=== PATIENT | female | born 1985 | race African-American/Black ===

== ENCOUNTER 2020-09-13 05:22 | Inpatient (IN) | payer MEDICARE, MEDICAID, SELFPAY ==
--- NOTE | 2020-09-12 19:00 | PM.IMHP ---
H&P: HPI History of Present Illness Date/Time: 09/12/20 19:00 35 yo F smoker with h/o CT, NG, candidiasis, PRIOR c-sectionx1, GBS, HPV and fibroids who presents for REPEAT C SECTION AND BILATERAL TUBAL STERILIZATION at 39wk 6d. I explained her condition procedure and risks involved including but not limited to bleeding infection injury to bladder bowel baby pelvic vessels DVT pneumonia wound infection UTI hemorrhage the risk of anesthesia and she agrees to proceed Informed consent obtained [facility] tubal consent forms have been signed and advanced Chief Complaint: Repeat with bilateral tubal sterilization Term Review of Systems Review of Systems: All systems reviewed & are unremarkable except as noted in HPI and below Constitutional: Constitutional: Reports no additional constitutional complaints Eyes: Eyes: Reports no additional eye complaints ENT: Reports system reviewed and no additional complaints, except as documented Cardiovascular: Cardiovascular: Reports no additional cardiovascular complaints Respiratory: Respiratory: Reports no additional respiratory complaints Gastrointestinal: Gastrointestinal: Reports no additional gastrointestinal complaints Genitourinary: Genitourinary: Reports no additional female genitourinary complaints Musculoskeletal: Musculoskeletal: Reports no additional musculoskeletal complaints Integumentary/Breasts: Skin/Breast: Reports system reviewed and no additional complaints, except as docu Neurologic: Reports system reviewed and no additional complaints, except as documented Psychiatric: Psychiatric: Reports no additional psychiatric complaints Endocrine: Endocrine: Reports no additional endocrine complaints Hematologic/Lymphatic: Hematologic/Lymphatic: Reports no additional hematologic/lymphatic complaints Allergic/Immunologic: Allergic/Immunologic: Reports no additional allergic/immunologic complaints [facility] Past Medical History Medical History (Updated 09/12/20 @ 19:13 by Pb Longo MD) Candidiasis section wound complication Colitis Condyloma acuminatum Group B Streptococcus carrier, antepartum History of chlamydia History of gonorrhea HPV (human papilloma virus) infection Hyperemesis Uterine leiomyoma during , with baby delivered Vomiting blood Surgical History Surgical History (Updated 09/12/20 @ 19:13 by Pb Longo MD) Delivery by section Family History Family History (Updated 09/12/20 @ 19:08 by Pb Longo MD) Other Asthma Depression Diabetes mellitus Heart disease Hypertension Social History Social History (Updated 09/12/20 @ 19:09 by Pb Longo MD) Smoking packs per day: 1 Smoking cigarettes per day: 20.0 Smoking status: Current every day smoker Tobacco type: cigarettes Second hand tobacco smoke exposure: Yes Alcohol intake: former Substance use type: marijuana Living arrangements: with family Occupation/Education: unemployed Gender identity (if verbalized by the patient): Female Sexual Orientation (if Verbalized by the Patient): Bisexual Spiritual care concerns: No Agree to blood products: Yes Meds Home Medications and Allergies Home Medications Medication Instructions Recorded Confirmed Type calcium carbonate 600 mg calcium 600 mg PO DAILY 07/10/20 07/11/20 History (1,500 mg) tablet escitalopram oxalate 10 mg tablet 10 mg PO DAILY 07/10/20 07/11/20 History metronidazole 500 mg tablet 500 mg PO Q8H 07/10/20 07/11/20 History vits 75-iron 28 mg-folic 1 pkg PO DAILY ea 07/10/20 07/11/20 History acid 800 mcg-omega3 440 mg oral pack progesterone micronized 200 mg 200 mg PO QHS 07/10/20 07/11/20 History capsule pyridoxine (vitamin B6) 25 mg 25 mg PO DAILY 07/10/20 07/11/20 History tablet scopolamine base 1 mg over 3 days 1 patch TRANSDERMAL Q72H 07/10
[2020-09-13] VITALS (54 sets, daily range): BP systolic 90–120; BP diastolic 54–79; PULSE 57–140; RESP 13–18; TEMP 35.8–36.9; O2SAT 73–100; BMI 34.5
--- NOTE | 2020-09-13 06:42 | LDADM ---
This patient, Rogerio Boyd, was admitted to Labor/Delivery/Recovery 120 on 09/13/20 at 05:22. Plans for labor, pain management and were discussed with patient. Patient/family oriented to hospital policies and general routines including ID bracelet, bed and alarms, visiting hours, pain management, procedures, bathroom and other care routines, personal items, smoking policy, room service/diet and guest tray routines, security routines, call light, and visiting hours. Patient/Family are encouraged to report perceived risks to care and to ask questions if they do not understand what they are told or what they should do. See OBIX for further documentation.
[2020-09-13 06:43] LABS: Basophils Absolute Auto 0.1 K/mm3 (0.0-0.1); Basophils Percent Auto 0.4 % (0.2-1.2); Eosinophils Absolute Auto 0.1 K/mm3 (0-0.3); Eosinophils Percent Auto 0.6 % (0-4.4); Hematocrit 33.5 % (37.0-47.0); Immature Granulocyte Percent A 2.2 % (0-0.5); Lymphocytes Absolute Auto 2.95 K/mm3 (0.9-3.2); Lymphocytes Percent Auto 21.9 % (18.3-44.2); Mean Corpuscular HGB Conc 32.8 g/dl (32-36); Mean Corpuscular Volume 94.4 fl (80-100); Mean Platelet Volume 10.6 fl (7.4-10.4); Monocytes Absolute Auto 1.2 K/mm3 (0.1-0.6); Monocytes Percent Auto 8.9 % (2.6-8.5); Neutrophils Absolute Auto 8.9 K/mm3 (1.3-6.7); Nucleated Red Blood Cells Perc 0.1 % (0.0-0.2); Platelet Count Result 254 k/mm3 (150-375); Red Blood Count 3.55 M/mm3 (4.2-5.4); Red Cell Distribution Width 13.2 % (11.5-14.5); White Blood Count 13.5 K/mm3 (4.5-10.0)
--- NOTE | 2020-09-13 06:55 | WPDANESEPPF ---
Anes - Initial Pre Proc Eval Procedure: Operation Date: 09/13/20 07:30 Proposed Procedures p Repeat Low Transverse Section - Pb Longo MD s Laparoscopic Bilateral Salpingectomy For Tubal Sterilization - Pb Longo MD Date/Time: 09/13/20 06:55 Surgeon: Pb Longo MD Pre Op Diagnosis: Repeat , Bilateral tubal ligation Patient Data Age: 35 Gender: F Height: 1.63 m Weight: 91.4 kg Last Vital Signs Pulse 106 H 09/13/20 06:19 BP 120/79 09/13/20 06:19 Allergies Allergy/AdvReac Type Severity Reaction Status Date / Time No Known Allergies Allergy Unverified 07/11/20 11:57 Home Medications Medication Instructions Recorded Confirmed Type calcium carbonate 600 mg calcium 600 mg PO DAILY 07/10/20 07/11/20 History (1,500 mg) tablet escitalopram oxalate 10 mg tablet 10 mg PO DAILY 07/10/20 07/11/20 History metronidazole 500 mg tablet 500 mg PO Q8H 07/10/20 07/11/20 History vits 75-iron 28 mg-folic 1 pkg PO DAILY ea 07/10/20 07/11/20 History acid 800 mcg-omega3 440 mg oral pack progesterone micronized 200 mg 200 mg PO QHS 07/10/20 07/11/20 History capsule pyridoxine (vitamin B6) 25 mg 25 mg PO DAILY 07/10/20 07/11/20 History tablet scopolamine base 1 mg over 3 days 1 patch TRANSDERMAL Q72H 07/10/20 07/11/20 History transdermal patch triamcinolone acetonide 0.1 % 1 applic TOPICAL BID 07/10/20 07/11/20 History topical cream famotidine 20 mg tablet 20 mg PO DAILY #30 tablet 07/11/20 07/11/20 Rx hydrocortisone 1 % topical cream 1 applic RECTAL DAILY #28.4 g 07/11/20 07/11/20 Rx with perineal applicator Laboratory Tests 09/13/20 09/13/20 09/13/20 06:31 06:31 06:31 WBC 13.5 K/mm3 H K/mm3 (4.5-10.0) RBC 3.55 M/mm3 L M/mm3 (4.2-5.4) Hgb 11.0 g/dL L g/dL (12.0-15.0) Hct 33.5 % L % (37.0-47.0) MCV 94.4 fl fl (80-100) MCH 31.0 pg pg (26-34) MCHC 32.8 g/dl g/dl (32-36) RDW 13.2 % % (11.5-14.5) Plt Count 254 k/mm3 k/mm3 (150-375) MPV 10.6 fl H fl (7.4-10.4) Immature Gran % (Auto) 2.2 % H % (0-0.5) Neut % (Auto) 66.0 % % (45.5-73.1) Lymph % (Auto) 21.9 % % (18.3-44.2) [place] % (Auto) 8.9 % H % (2.6-8.5) Eos % (Auto) 0.6 % % (0-4.4) Baso % (Auto) 0.4 % % (0.2-1.2) Lymph # (Auto) 2.95 K/mm3 K/mm3 (0.9-3.2) [place] # (Auto) 1.2 K/mm3 H K/mm3 (0.1-0.6) Eos # (Auto) 0.1 K/mm3 K/mm3 (0-0.3) Baso # (Auto) 0.1 K/mm3 K/mm3 (0.0-0.1) Abs Immat Gran (auto) 0.30 K/mm3 H K/mm3 (0.00-0.031) Absolute Neuts (auto) 8.9 K/mm3 H K/mm3 (1.3-6.7) Absolute Nucleated RBC 0.0 K/mm3 K/mm3 (0.0-0.012) Nucleated RBC % 0.1 % % (0.0-0.2) Urine Opiates Screen Pending Urine Methadone Screen Pending Ur Barbiturates Screen Pending Ur Phencyclidine Scrn Pending Ur Amphetamine Screen Pending U Benzodiazepines Scrn Pending Urine Cocaine Screen Pending U Cannabinoids Screen Pending RPR Pending Patient hx anesthesia problems: none Family hx anesthesia problems: none PMFSH Past Medical History Medical History (Updated 09/12/20 @ 19:13 by Pb Longo MD) Candidiasis section wound complication Colitis Condyloma acuminatum Group B Streptococcus carrier, antepartum History of chlamydia History of gonorrhea HPV (human papilloma virus) infection Hyperemesis Uterine leiomyoma during , with baby delivered Vomiting blood Surgical History Surgical History (Updated 09/12/20 @ 19:13 by Pb Longo MD) Delivery by section Family History Family History (Updated 09/12/20 @ 19:08 by Pb Longo MD) Other Asthma Depress
--- NOTE | 2020-09-13 06:56 | WPDHPUPDATE1 ---
History and Physical Update Update Date/Time: 09/13/20 06:56 History and Physical has been reviewed, including an updated exam of the patient. There are NO changes in the patient's condition. Risks, benefits, and alternatives have been discussed and questions answered. Patient agrees to proceed with procedure. 35 yo F smoker with h/o CT, NG, candidiasis, PRIOR c-sectionx1, GBS, HPV and fibroids who presents for REPEAT C SECTION AND BILATERAL TUBAL STERILIZATION at 39wk 6d. I explained her condition procedure and risks involved including but not limited to bleeding infection injury to bladder bowel baby pelvic vessels DVT pneumonia wound infection UTI hemorrhage the risk of anesthesia and she agrees to proceed Informed consent obtained [place] [facility] tubal consent forms have been signed and advanced Chief Complaint: Repeat with bilateral tubal sterilization Term
--- NOTE | 2020-09-13 06:57 | WPDOBADMIT ---
Obstetrics - Admit Note Admission Note: record reviewed. No pertinent additions to the history and/or any subsequent changes in the physical findings that are not consistent with the expected course of the were found. Additions to the history and/or subsequent changes in the physical findings follow. None. 35 yo F smoker with h/o CT, NG, candidiasis, PRIOR c-sectionx1, GBS, HPV and fibroids who presents for REPEAT C SECTION AND BILATERAL TUBAL STERILIZATION at 39wk 6d. I explained her condition procedure and risks involved including but not limited to bleeding infection injury to bladder bowel baby pelvic vessels DVT pneumonia wound infection UTI hemorrhage the risk of anesthesia and she agrees to proceed Informed consent obtained [place] [facility] tubal consent forms have been signed and advanced Chief Complaint: Repeat with bilateral tubal sterilization Term
--- NOTE | 2020-09-13 06:57 | PM.OBPRVD ---
OB - Delivery Note Procedure Delivery date: 09/13/20 Procedure: Procedures Operation Date: 09/13/20 07:30 Repeat low-transverse section with delivery of viable male and placenta Bilateral tubal sterilization with bilateral salpingectomy events: Previous Intrapartal events: None Induction method: none Delivery monitor: external FHT and external uterine Route of delivery: Episiotomy description: None Laceration Description: None Specimen: Yes ( placenta, cord blood gases, cord blood) Quantitative Blood Loss (ml): 185 Anesthesia type: Spinal Disposition: floor Complications: none Narrative: see op note Baby Date of : 09/13/20 Time of : 07:51 Weeks of gestation at delivery: 40 Infant gender: Male Weight (pounds): 6 Weight (ounces): 0 presentation: vertex position: Left Occiput Anterior Placenta delivery description: Manual Removal and Normal Configuration cord vessel description: 3 Vessels score one minute: 8 score five minutes: 8 Narrative: meconium-stained amniotic fluid spontaneous respirations and cry no observed abnormalities on exam taken to the nursery in stable condition normal transition scores 8 and 8 weight 6 lb even
--- NOTE | 2020-09-13 06:58 | PM.PROC ---
Procedure Note - Detailed Date of procedure: 09/13/20 Pre-op diagnosis: Repeat , Bilateral tubal ligation term , previous desires repeat section, desires bilateral tubal sterilization Post-op diagnosis: same ( delivered viable male infant and placenta) Procedure performed: repeat low-transverse section with delivery of viable male and placenta Bilateral tubal sterilization with bilateral salpingectomy Description of procedure: informed consent obtained [facility] aid tubal consent form verified patient taken to the operating room where spinal anesthetic was administered placed in the supine position Clement catheter was inserted in the abdomen was then prepped and then draped in the usual sterile fashion. A time-out was then performed. A Pfannenstiel incision was made to the skin in the abdomen was opened in layers hemostasis with cautery fascia was entered bilaterally undermined superior and inferior. Peritoneum entered with electrocautery digitally dissected. Transverse incision made to the uterus blunt dissection entry into the uterus revealed meconium-stained amniotic fluid uterine incision was digitally extended bilateral. vertex was then delivered via the abdominal incision within nose and throat being bulb suction infant stimulated spontaneous respirations and cry cord clamped and cut infant handed to the nursery nurse in attendance Apgars 8 and 8 weight 6 lb 0 oz taken to the nursery in stable condition normal transition. Cord gases and cord blood obtained 10 units Pitocin given into the myometrium and the placenta was delivered intact with a three-vessel cord the uterus contracted well and Pitocin was given intravenously. Blood clots membranes removed from the intrauterine cavity. The uterine incision was then repaired in 2 layers with 0 Vicryl in a running interlocking fashion the 2nd being an imbricating stitch with [id number] sutures used along the uterine incision for hemostasis. Bilateral tubal sterilization was then performed in a bilateral sequential fashion the fallopian tubes were grasped with Guild clamps traced out to the fimbriated aspect. The mesial salpinx was endo coagulated identifying the arcuate vessel and the fimbria ovarian vessels. Clamps were placed across the proximal tube arcuate vessel and fimbria ovarian vessels. Fallopian tubes were excised using electrocautery bilateral. In a bilateral sequential fashion the proximal tubes were doubly ligated with 2 0 silk suture E arcuate vessels ligated with 2 0 silk suture. And the fimbria ovarian vessels doubly ligated with 2 0 silk sutures. The ends were electrocauterized. The sponge needle instrument counts correct irrigation of the cul-de-sac and blood clots removed. The sponge needle instrument counts correct the uterus was returned to the peritoneal cavity. Anterior peritoneum and rectus muscles reapproximated with 0 Vicryl suture in a running fashion. The fascia was closed with 2. Quill S RS system bilaterally. Interrupted sutures 3 0 plain used to Roderick's fascia. Absorbable staple device called in sorb was utilized on the skin and Dermabond followed by Mepilex dressing. Sponge needle counts correct patient tolerated procedure well was taken recovery room stable condition. Implants: None Anesthesia: spinal ( [place]) Surgeon: Pb Longo MD Field Reviewer: medical surgical tech x2 Estimated blood loss (mL): 185 IV fluids (mL): 2,000 Urine output (mL): 200 Drains: No Packing: No Pathology: yes ( placenta, cord blood, cord blood gases) Complications: None Condition: stable Disposition: floor Findings: viable male infant born at 7:51 a.m. scores 8 and 8 at 1 and 5 minutes weight 6 lb 0 oz taken to the nursery in stable condition; placenta intact three-vessel cord and meconium-stained amniotic fluid; uterine fibroids in the myometrium identified tubal sterilization completed
[2020-09-13] MEDS: LACTATED RINGERS 1,000 ML 125 ML IV CONT (07:01)
--- NOTE | 2020-09-13 07:19 | PM.OBDSVD ---
DS: Admitting Diagnosis Admitting Diagnosis Admitting Diagnosis: (1) Term : Code(s): Z34.90 - Encounter for supervision of normal , unspecified, unspecified trimester Status: Acute (2) Delivery by section: Status: Acute Assessment and Plan: Repeat low-transverse section under spinal anesthesia (3) Encounter for female sterilization procedure: Code(s): Z30.2 - Encounter for sterilization Status: Acute Assessment and Plan: Bilateral tubal sterilization with bilateral salpingectomy under spinal anesthesia (4) Group B Streptococcus carrier, antepartum: Code(s): O99.820 - Streptococcus B carrier state complicating Status: Acute DS: Discharge Diagnosis Discharge Diagnosis (1) Term delivered: Code(s): O80 - Encounter for full-term uncomplicated delivery Status: Acute (2) Delivery by section: Status: Acute (3) Encounter for female sterilization procedure: Code(s): Z30.2 - Encounter for sterilization Status: Acute (4) Group B Streptococcus carrier, antepartum: Code(s): O99.820 - Streptococcus B carrier state complicating Status: Acute OB - DS: Summary Hospital Course Time spent discussing smoking cessation with patient: 3 to 10 minutes OB Procedures : Ultrasound OB Procedures Intrapartum: OB Procedures: : P.P. tubal ligation Peripartum Data Delivery Method: Section Laceration Description: None Episiotomy description: None Procedures: Procedures Operation Date: 09/13/20 07:30 Repeat Low transverse c section with delivery of viable male infant and placenta bilateral tubal sterilization with bilateral salpingectomy complications: none 1: Gender: Male Disposition of : home Status at Discharge Functional status at discharge: independent ambulation Overall status at discharge: patient is back to baseline Time Spent with Patient Time attestation: Total time spent providing and/or coordinating discharge services: Time spent: Less than 30 minutes Exam Const: General: cooperative, healthy appearing, comfortable, no acute distress, well developed, alert, awake and Physically active Nutritional Appearance: average body habitus Orientation/consciousness: patient oriented x3 Limitations: no limitations HENMT: Head: normal to inspection Eyes: General: appearance normal, both eyes and all related structures Neck: Neck: normal visual inspection and full ROM Chest: Chest palpation & inspection: normal inspection of the chest Breast/axilla inspection: normal inspection of the breasts Resp: Effort & Inspection: normal respiratory effort Auscultation: clear to auscultation bilaterally Cardio: Palpation: normal PMI Rate: regular rate Rhythm: regular rhythm Heart sounds: S1 normal heart sound present and S2 normal heart sound present GI: Inspection: normal to inspection and incision (ddi) GI Palp: Yes Soft to palpation Auscultation: normal bowel sounds : External Female Exam: normal external appearance Bimanual exam- vagina & uterus: non-tender Back/Spine/Pelvis: Back: no CVA tenderness Skin: General skin exam: normal color Neuro: General: patient oriented x3, gait normal, tone normal, moves all extremities and Normal light touch and pain sensation Extrem: General: normal to inspection and full ROM Psych: Appearance: grossly normal Mental Status: mental status grossly normal Speech and movement: Normal speech and movement present Affect: normal affect Attitude: cooperative Thought process: Normal thought process present Thought content: Yes Normal thought content present Insight: Good insight present (Psych) Judgement: Good judgement present (Psych) DS: Data Data Completed and Pending Labs on day of discharge: Labs from last 24 hours 09/13/20
[2020-09-13] MEDS: ceFAZolin 2 GM/D5W 50 ML 2 GM/50 ML BAG IVPB (07:23)
[2020-09-13 07:40] LABS: Amphetamine Screen Urine Negative (Negative); Barbiturate Screen Urine Negative (Negative); Benzodiazepines Screen Urine Negative (Negative); Cannabinoid Screen Urine Positive (Negative); Cocaine Screen Urine Negative (Negative); Methadone Screen Urine Negative (Negative); Opiate Screen Urine Negative (Negative); Phencyclidine Screen Urine Negative (Negative)
[2020-09-13] MEDS: OXYTOCIN 30 UNITS/NS 500 ML 30 UNITS/500 ML BAG 125 UNITS IV CONT (09:35)
--- NOTE | 2020-09-13 11:07 | PC.NURSE ---
PT arrived on unit via stretcher accompanied by both fob and and taken to room 290. PT transferred to bed via maxi air without difficulty. PT alert and awake and oriented to room 290 and surrounding area. PT introductions made and plan of care discussed per post op c section, pain management, bottle feeding, security measures and daily care activities. Welcome packet reviewed and discussed. PT received such instructions per one to one discussion and utilizing the mom baby care guide book. No barriers to learning identified and pt and fob both recipients of such instructions. PT verbalized understanding of such instructions.
[2020-09-13] MEDS: SIMETHICONE 80 MG TAB.CHEW PO ×2 (13:27→17:30)
[2020-09-13] MEDS: FLUCONAZOLE 150 MG TABLET PO (13:28)
[2020-09-13] MEDS: KETOROLAC 30 MG/ML VIAL (*BKC) IV PUSH ×2 (13:29→19:30)
[2020-09-13] MEDS: DEXTROSE 5%/0.45% SOD CHL 1,000 ML 125 ML IV CONT (14:43)
[2020-09-13] MEDS: diphenhydrAMINE HCl INJ 50 MG/ML VIAL (14:45)
[2020-09-13] MEDS: ACETAMINOPHEN 325 MG TABLET 650 MG PO (17:29)
[2020-09-13] MEDS: DOCUSATE SODIUM 100 MG CAPSULE PO (17:30)
[2020-09-13] MEDS: MICONAZOLE NITRATE 2% VAGINAL CREAM 45 GM TUBE 1 APPFUL VAGINAL (21:00)
[2020-09-14] VITALS: BP 98/62; PULSE 69; RESP 16; TEMP 36.7
[2020-09-14] MEDS: ACETAMINOPHEN 325 MG TABLET 650 MG PO ×4 (00:15→22:40)
[2020-09-14] MEDS: KETOROLAC 30 MG/ML VIAL (*BKC) IV PUSH (01:45)
[2020-09-14 05:15] VITALS: BP 104/68; PULSE 62; RESP 16; TEMP 36.6
[2020-09-14 05:29] LABS: Basophils Absolute Auto 0.1 K/mm3 (0.0-0.1); Basophils Percent Auto 0.3 % (0.2-1.2); Eosinophils Absolute Auto 0.1 K/mm3 (0-0.3); Eosinophils Percent Auto 0.2 % (0-4.4); Hematocrit 30.5 % (37.0-47.0); Hemoglobin 10.2 g/dL (12.0-15.0); Immature Granulocyte Absolute 0.23 K/mm3 (0.00-0.031); Lymphocytes Absolute Auto 3.23 K/mm3 (0.9-3.2); Lymphocytes Percent Auto 14.4 % (18.3-44.2); Mean Corpuscular HGB Conc 33.4 g/dl (32-36); Mean Corpuscular Hemoglobin 31.5 pg (26-34); Mean Corpuscular Volume 94.1 fl (80-100); Mean Platelet Volume 10.8 fl (7.4-10.4); Monocytes Absolute Auto 1.7 K/mm3 (0.1-0.6); Monocytes Percent Auto 7.7 % (2.6-8.5); Neutrophils Absolute Auto 17.2 K/mm3 (1.3-6.7); Neutrophils Percent Auto 76.4 % (45.5-73.1); Platelet Count Result 239 k/mm3 (150-375); Red Blood Count 3.24 M/mm3 (4.2-5.4); White Blood Count 22.5 K/mm3 (4.5-10.0)
--- NOTE | 2020-09-14 06:45 | PC.NURSE ---
PT introductions made and and plan of care discussed per post op c section, pain management, bottle feeding, daily care activities. PT received such instructions and education through out the shift using one to one discussion, mom baby care guide book, demonstration. No barriers to learning identified. PT was the only recipient of such instructions. PT verbalized understanding of such care.
[2020-09-14 08:30] LABS: Rapid Plasma Reagin Non-Reactive (NonReactive)
[2020-09-14 09:00] VITALS: BP 98/72; PULSE 75; RESP 18; TEMP 36.6; O2SAT 100
--- NOTE | 2020-09-14 09:46 | WPDANLDNPN2 ---
Anes-Prog Note L&D-Neuraxial Date/Time: 09/14/20 09:46 Neuraxial medications: intrathecal PF morphine Opiod-related complaints: none Patient feedback: Patient satisfied with post-operative pain management.
--- NOTE | 2020-09-14 09:46 | WPDANLDPN2 ---
Anes-Prog Note L&D Date/Time: 09/14/20 09:46 Comfortable throughout: section Neuraxial method: spinal Epidural/Spinal procedure site: clean & non-tender Neuro status: Neuro function grossly intact. Cardiovascular status: normal Respiratory status: normal Airway patency: baseline Mental status: baseline Post-Op hydration status: normal Vital Signs: Last Vital Signs Temp 36.6 C 09/14/20 05:15 Pulse 62 09/14/20 05:15 Resp 16 09/14/20 05:15 BP 104/68 09/14/20 05:15 Pulse Ox 100 09/13/20 17:00 Pain score (VAS): 0 I/O: Intake & Output 09/13/20 09/14/20 09/14/20 23:59 07:59 15:59 Intake Total 800 1000 Output Total 1750 1500 Balance -950 -500 Post-procedural complaints: none Patient feedback: Patient satisfied with anesthetic care.
[2020-09-14] MEDS: DOCUSATE SODIUM 100 MG CAPSULE PO ×2 (10:06→16:42)
[2020-09-14] MEDS: SIMETHICONE 80 MG TAB.CHEW PO ×2 (10:06→16:43)
[2020-09-14] MEDS: IBUPROFEN 600 MG TABLET PO ×3 (10:06→22:40)
[2020-09-14 18:40] VITALS: BP 134/71; PULSE 88; RESP 16; TEMP 36.7
[2020-09-14] MEDS: MICONAZOLE NITRATE 2% VAGINAL CREAM 45 GM TUBE 1 APPFUL VAGINAL (21:00)
[2020-09-15] MEDS: ACETAMINOPHEN 325 MG TABLET 650 MG PO (05:45)
[2020-09-15] MEDS: IBUPROFEN 600 MG TABLET PO ×2 (05:45→12:45)
--- NOTE | 2020-09-15 07:40 | PM.OBDSVD ---
DS: Admitting Diagnosis Admitting Diagnosis Admitting Diagnosis: OB - DS: Summary OB Procedures : None OB Procedures Intrapartum: OB Procedures: : None Peripartum Data Procedures: Procedures Operation Date: 09/13/20 07:30 Actual Procedure Side Surgeon p Repeat Low Transverse Section Pb Longo MD Time Spent with Patient Time attestation: Total time spent providing and/or coordinating discharge services: DS: Data Data Completed and Pending Pending studies at discharge: Pending at discharge 09/13/20 07:52 Surgical [PTH] Routine Surgical [PTH] Routine Labs on day of discharge: Labs from last 24 hours 09/13/20 06:31 RPR Non-reactive Discharge Plan Discharge Attending physician on discharge: Pb Longo Discharging Clinician: Pb Longo Anticipated Discharge Date/Time: 09/16/20 07:26 Patient Disposition: Home, Self-Care Activity: no straining, no driving, may drive after 2 weeks and as tolerated Diet: as tolerated and regular Wound Care Instructions: follow printed instructions Patient Instructions: Antibiotic Form, How to Stop Smoking (DC) Stand Alone Forms: General Discharge Information Follow-up/Referrals: Pb Longo MD [Physician] - 3 Weeks Discharge Medications: New hydrocodone-acetaminophen 5-325 mg Tablet 1 tablet PO Q6H PRN (Reason: breakthrough pain) Qty: 28 RF: 0 ibuprofen 600 mg Tablet 600 mg PO Q6H Qty: 90 RF: 2 Continued famotidine [Pepcid] 20 mg tablet 20 mg PO DAILY Qty: 30 RF: 2 calcium carbonate [Calcium 600] 600 mg calcium (1,500 mg) tablet 600 mg PO DAILY RF: 0 escitalopram oxalate 10 mg tablet 10 mg PO DAILY RF: 0 Discontinued hydrocortisone 1 % cream with perineal applicator 1 applic RECTAL DAILY Qty: 28.4 RF: 2 metronidazole 500 mg tablet 500 mg PO Q8H RF: 0 Daily 28-800-440 mg-mcg-mg combo pack 1 pkg PO DAILY RF: 0 progesterone micronized 200 mg capsule 200 mg PO QHS RF: 0 pyridoxine (vitamin B6) 25 mg tablet 25 mg PO DAILY RF: 0 scopolamine base 1 mg over 3 days patch 3 day 1 patch transdermal Q72H RF: 0 triamcinolone acetonide 0.1 % cream 1 applic topical BID RF: 0 Date of admission: 09/13/20 05:22 Primary Care Provider: Alex,Keyana Hebert Admitting Provider: Pb Longo Attending physician on admission: Pb Longo Condition: Stable
[2020-09-15 08:30] VITALS: BP 93/68; PULSE 81; RESP 16; TEMP 36.3; O2SAT 100
[2020-09-15] MEDS: SIMETHICONE 80 MG TAB.CHEW PO (08:41)
[2020-09-15] MEDS: DOCUSATE SODIUM 100 MG CAPSULE PO (08:41)
[2020-09-15] MEDS: HYDROcodone/acetaminophen (*CRX) 5-325 MG TABLET 1 TAB PO (12:45)
--- NOTE | 2020-09-15 13:04 | PC.NURSE ---
Discharged patient to awaiting car with . All discharge instructions given and all questions answered.
== END 2020-09-15 12:50 | disposition home or self-care (01) | DRG 784 ==
LOC: ANHLDR 07:27 → ANHOB2 11:10
PROVIDERS: Admitting Provider Obstetrics & Gynecology; PCP Physician Assistant; Visit Provider Obstetrics & Gynecology
PROC: 10D00Z1 Extraction of Products of Conception, Low, Open Approach (ICD-10-PCS; CPT 59514; principal; 2020-09-13 07:30)
DX: O34.211 Maternal care for low transverse scar from previous cesarean delivery (principal); O98.32 Other infections with a predominantly sexual mode of transmission complicating childbirth; Z37.0 Single live birth; Z3A.39 39 weeks gestation of pregnancy; Z30.2 Encounter for sterilization; O99.334 Smoking (tobacco) complicating childbirth; F17.210 Nicotine dependence, cigarettes, uncomplicated; O77.0 Labor and delivery complicated by meconium in amniotic fluid; O34.13 Maternal care for benign tumor of corpus uteri, third trimester; O99.824 Streptococcus B carrier state complicating childbirth; O99.214 Obesity complicating childbirth; E66.9 Obesity, unspecified; A63.0 Anogenital (venereal) warts
CPT/HCPCS: 36415; 80307; 85025; 86592; 86850; 86900; 86901; 88302; 88307; A9270; J0131; J0690; J1100; J1200; J1885; J2274; J2370; J2405; J2590; J7120